=== PATIENT | female | born 1945 | race Caucasian/White ===

== ENCOUNTER 2018-03-31 07:21 | Day surgery (SDC) | payer MEDICARE, OTHER ==
[~2018-03-31 07:21] MED LIST: Famotidine IV* 10 MG/ML 2 ML (20 mg) IV ONE
[2018-03-31] MEDS ORDERED: Famotidine IV* 10 MG/ML 2 ML (20 mg) ONE (08:07)
[2018-03-31] MEDS ORDERED: Clindamycin 900 MG/D5W BAG(*) 900 MG/50 ML BAG IVPB ONE (08:07)
[2018-03-31] MEDS ORDERED: Dexamethasone IV* 4 MG/ML 1 ML (4 MG) ONE (08:34)
[2018-03-31] MEDS ORDERED: fentaNYL* 50 MCG/ML 2 ML VIAL (100 MCG VIAL) ONE ×2 (08:34→13:20)
[2018-03-31] MEDS ORDERED: Lidocaine 2% PF * 5 ML VIAL ONE (08:34)
[2018-03-31] MEDS ORDERED: Ondansetron INJ* 2 MG/ML VIAL ONE (08:34)
[2018-03-31] MEDS ORDERED: Propofol* 10 MG/ML 20 ML BTL ONE (08:34)
[2018-03-31] MEDS ORDERED: Midazolam* 1 MG/ML 5 ML VIAL (5 MG) ONE (08:34)
[2018-03-31] MEDS ORDERED: Cisatracurium* 2 MG/ML MDV 5 ML ONE (08:34)
[2018-03-31] MEDS ORDERED: KETAMINE HCL* 50 MG/ML 10 ML VIAL ONE (08:34)
[2018-03-31] MEDS: Buffered Lidocaine 0.9% SYRIN* 5 ML/SYR SYRINGE INTRADERM ONE ×2 (08:52→14:47)
[2018-03-31] MEDS ORDERED: Artificial Tear OPHTH.OINT* 3.5 GM ONE (09:28)
[2018-03-31] MEDS ORDERED: Lidocain 1% EPI 1:100,000 * 30 ML MDV ONE (09:58)
[2018-03-31] MEDS ORDERED: Thrombin 5,000 UNITS* 1 APPLIC KIT - topical use - TOPICAL ONE (09:58)
[2018-03-31] MEDS ORDERED: Bacitracin IV* 50,000 UNITS INJ ONE (09:59)
[2018-03-31] MEDS ORDERED: EPHEDrine (Pressors)* 50 MG/ML VIAL ONE (10:20)
[2018-03-31] MEDS ORDERED: Phenylephrine INJ* 10 MG/ML 1 ML VIAL (10 MG) ONE (10:56)
[2018-03-31] MEDS ORDERED: Ondansetron INJ* 2 MG/ML VIAL IV PRN ×2 (11:08→11:29)
[2018-03-31] MEDS ORDERED: Naloxone* 0.4 MG/ML 1 ML VIAL IV PRN (11:08)
[2018-03-31] MEDS ORDERED: fentaNYL* 50 MCG/ML 2 ML VIAL (100 MCG VIAL) IV PRN (11:08)
[2018-03-31] MEDS ORDERED: HYDROcodone/ACETAMIN 5-325 MG* 1 TAB PO PRN (11:29)
[2018-03-31] MEDS ORDERED: Acetaminophen TAB* 325 MG PO PRN (11:29)
[2018-03-31] MEDS ORDERED: Albuterol HFA INHALER* 8 gm MDI INH PRN (11:30)
[2018-03-31] MEDS ORDERED: HYDROcodone/ACETAMIN 5-325 MG* 1 TAB ONE (12:15)
[2018-03-31] MEDS ORDERED: Lisinopril TAB* 5 MG PO SCH (18:00)
[2018-03-31] MEDS ORDERED: Loteprednol 0.5% OPH.SUSP(NF) 5 ML BTL RIGHT EYE SCH (18:00)
[2018-03-31] MEDS ORDERED: Loteprednol 0.5% OPH.SUSP(NF) 5 ML BTL LEFT EYE SCH (18:00)
[2018-04-01 07:42] VITALS: BP 133/61
--- NOTE | 2018-04-01 08:08 | PN ---
Progress Note - Progress Note Date of Service: 04/01/18 SOAP: Subjective: [S/p lumbar discectomy L4-5 left, POD #1. LLE pain improved. Ambulating well. Incisional back pain managed with PO meds.] Objective: [ Vital Signs: Temp Pulse Resp BP Pulse Ox 98.6 F 87 16 133/61 99 04/01/18 07:22 04/01/18 07:22 04/01/18 07:22 04/01/18 07:22 04/01/18 07:22 General: Alert and sitting up on bedside. Neuro: Motor and sensory Incision: Intact with maggie. Dressing in place, no swelling. ] Assessment: [Satisfactory post-op] Plan: [1. Discharge home today. 2. Discharge instructions discussed]
--- NOTE | 2018-04-06 14:00 | OP ---
DATE OF OPERATION: 03/31/18 [facility] DATE OF : 45 SURGEON: Reza Ray MD HOME CARE NURSE: SHITAL Dumont ANESTHESIA: General. PRE-OP DIAGNOSIS: Herniated nucleus pulposus, L4-5, on the left. POST-OP DIAGNOSIS: Herniated nucleus pulposus, L4-5, on the left. OPERATIVE PROCEDURE: Partial hemilaminectomy L4-5 on the left with excision of herniated nucleus pulposus with microdissection. DESCRIPTION OF PROCEDURE: After satisfactory general anesthesia was obtained, the patient was placed on the operating table in the prone position with the chest supported on the Pop frame and the back slightly flexed. The lumbar region was then clipped, prepped and draped in a sterile manner for a lumbar laminectomy and a skin incision outlined from L4 to L5. This incision was infiltrated with 1% Xylocaine with epinephrine, after which it was turned down sharply to the level of the lumbar fascia. The fascia was divided along the spinous processes of the L4 and L5 and the paraspinal musculature stripped away from these posterior elements using the periosteal elevator and monopolar cautery. An intraoperative x-ray was obtained verifying proper interspace localization, after which the inferior aspect of the L4 lamina and medial aspect of the facet complex was thinned out with a Midas Keith drill and removed with a Kerrison. Preoperative imaging had suggested the superolateral migration of a disk fragment at this level. Additional superior and lateral exposure was obtained, which resulted in a medial facetectomy. Ligamentum flavum was removed with a Kerrison. At this point, the operating microscope was brought into the field and the remainder of the procedure done under microscopic visualization. Utilizing microdissection, epidural venous structures were coagulated and divided. Multiple fragments of disk material were found in the axillary area of the L4 nerve root exposure. These were removed with microdissection. These fragments had projected superiorly and medially and were basically over the L4 vertebral body and out into the foraminal region. After removing these fragments, the L4 and L5 nerve roots were noted to be free in their course. No attempts were made to enter the disk space itself. It was felt that a satisfactory decompression had been achieved. After assuring adequate hemostasis, the wound was thoroughly irrigated, after which a piece of Gelfoam was placed over the laminectomy defect. The fascia was then reapproximated with 0 Vicryl suture. The subcutaneous tissues were closed with 3-0 Vicryl suture and the skin closed with skin clips. The estimated blood loss was less than 50 cc and the final sponge, padding, and needle counts were correct. The patient was taken to the recovery room, extubated and in stable condition. [id number]/[facility] #: [id number] MTDD
== END 2018-04-01 09:30 | disposition home or self-care (01) ==
LOC: OR 07:21 → SSU 11:29 → OR 04-01 09:30
PROVIDERS: ATTEND Neurological Surgery
DX: M51.26 Other intervertebral disc displacement, lumbar region (principal); Z88.0 Allergy status to penicillin; I10 Essential (primary) hypertension; J45.909 Unspecified asthma, uncomplicated; K21.9 Gastro-esophageal reflux disease without esophagitis; E78.5 Hyperlipidemia, unspecified
CPT/HCPCS: 72100; A9270-GY; J1100; J2250; J2405; J2704; J3010

== ENCOUNTER → 2018-10-08 12:30 | Emergency (ER) | payer MEDICARE, OTHER ==
[~2018-10-08 12:30] MED LIST changes: -Famotidine IV* 10 MG/ML 2 ML (20 mg) IV ONE; +Iohexol 350* (CONTRAST) 500 ML MDV IV ONE; +Lactated Ringers 1000 ML Bag* 1,000 ML IV SCH
[2018-10-08 13:02] LABS: ABS Basophils 0.1 10^3/ul (0-0.2); ABS Eosinophils 0.1 10^3/ul (0-0.6); ABS Lymphocytes 2.4 10^3/ul (1.0-4.8); ABS Monocytes 0.7 10^3/ul (0-0.8); ABS Neutrophils 4.6 10^3/ul (1.5-7.7); Eosinophil % 1.1 %; Hematocrit 42 % (35-47); Hemoglobin 13.9 g/dL (12.0-16.0); Lymphocyte % 30.6 %; Mean Corpuscular HGB Conc 33 g/dL (31-36); Mean Corpuscular Hemoglobin 31 pg (27-31); Mean Corpuscular Volume 93 fL (80-97); Nucleated Red Blood Cells % 0.1; Platelet Count 226 10^3/uL (150-450); Red Blood Count 4.49 10^6 /uL (3.70-4.87); Red Cell Distribution Width 14 % (10-15); White Blood Count 7.9 10^3/uL (3.5-10.8)
[2018-10-08 13:10] LABS: Activated Partial Thrombo Time 30.2 seconds (26.0-38.0); INR 0.97 (0.82-1.09)
[2018-10-08 13:21] LABS: Albumin/Globulin Ratio 1.8 (1-3); BUN/Creatinine Ratio 20.7 (8-20); Calcium 9.2 mg/dL (8.6-10.3); EGFR African American 72.6 (>60); Globulin 2.2 g/dL (2-4); Potassium 4.5 mmol/L (3.5-5.0); Total Bilirubin 0.7 mg/dL (0.2-1.0); Total Protein 6.2 g/dL (6.4-8.9)
--- NOTE | 2018-10-08 13:24 | ED ---
HPI Chest Pain - HPI Summary HPI Summary: Pt is a 72 y/o F presenting to the ED with a chief complaint of chest pain first onset today. She had a laparoscopic oophorectomy, and had some tightness in her shoulders and neck yesterday, so she elevated her legs which helped but she still experienced some SOB. She feels slightly better but it is still there. She also thought her L foot was slightly edematous, but she denies any pain in her feet or calves bilaterally. 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 - History of Current Complaint Chief Complaint: EDChestPainROMI Time Seen by Provider: 10/08/18 12:42 Hx Obtained From: Patient Onset/Duration: Started Hours Ago, Still Present Timing: Constant, Lasting Hours Initial Severity: Mild Current Severity: Mild Pain Intensity: 0 Pain Scale Used: 0-10 Numeric Chest Pain Location: Diffuse Chest Pain Radiates: No Character: Tightness Aggravating Factor(s): Nothing Alleviating Factor(s): Nothing Associated Signs and Symptoms: Positive: Chest Pain, Shortness of Breath, Edema. Negative: Calf Pain/Swelling - Allergy/Home Medications Allergies/Adverse Reactions: Allergies Allergy/AdvReac Type Severity Reaction Status Date / Time Penicillins Allergy Severe Rash Verified 10/08/18 12:32 Sulfa (Sulfonamide Allergy Mild Rash Verified 10/08/18 12:32 Antibiotics) sulfamethoxazole Allergy Mild Rash Verified 10/08/18 12:32 [From Bactrim] trimethoprim [From Bactrim] Allergy Mild Rash Verified 10/08/18 12:32 PMH/Surg Hx/FS Hx/Imm Hx Previously Healthy: Yes Endocrine/Hematology History: Denies: Hx Bone Marrow Disease, Hx Diabetes, Hx Sickle Cell Disease, Hx Anemia Cardiovascular History: Reports: Hx Hypertension - CONTROLLED W/ MEDS, 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 Denies: Hx Pacemaker/ICD Respiratory History: Reports: Hx Asthma Denies: Other Respiratory Problems/Disorders - CAN CLIMB MORE THAN 2 FLIGHTS BUT GI History: Reports: Hx Gastroesophageal Reflux Disease, Hx Hiatal Hernia - SMALL- SINCE 2008, Hx Irritable Bowel - DX CELIAC DISEASE 2008 History: Denies: Hx Renal Disease Musculoskeletal History: Reports: Hx Osteoporosis Denies: Hx Rheumatoid Arthritis, Other Musculoskeletal History - PAIN, NUMBNESS, TINGLING DOWN LEFT LEG Sensory History: Reports: Hx Cataracts, Hx Contacts or Glasses - GLASSES- SELDOM WEARS, Hx Glaucoma Denies: Hx Hearing Aid Opthamlomology History: Reports: Hx Cataracts, Hx Contacts or Glasses - GLASSES - SELDOM WEARS, Hx Glaucoma Neurological History: Reports: Hx Headaches - occasional, Hx Migraine - ocular- occasional, Other Neuro Impairments/Disorders - lumbar disc displacement, occasional bouts of vertigo Psychiatric History: Denies: Hx Panic Disorder - Cancer History Hx Chemotherapy: No Hx Radiation Therapy: No - Surgical History Surgery Procedure, Year, and Place: TONSILLECTOMY MD. LEFT BREAST BIOPSY X 2 [facility] ([facility]). LEFT THYROIDECTOMY BENIGN 1995 [facility]. CATARACTS/ CORNEAL CELL TRANSPLANTS BILAT- RIGHT 08/07, LEFT 05/14 [place]. PELVIC MESH - URINARY INCONTINENCE 2012 [facility]. D&C 2016 [facility] Hx Anesthesia Reactions: No Infectious Disease History: No Infectious Disease History: Denies: Traveled Outside the [place] in Last 30 Days - Family History Known Family History: Positive: Hypertension - father, Diabetes - mother Family History: Mother and father with CA - Social History Alcohol Use: Occasionally Alcohol Amount: 4 DRINKS/MONTH Hx Substance Use: No Substance Use Type: Reports: None Hx Tobacco Use: No Smoking Status (MU): Never Smoked Tobacco Have You Smoked in the Last Year: No Review of Systems Positive: Chest Pain Positive: Shortness Of Breath Positive: Edema - L foot. Negative: Myalgia - calf/foot pain/edema All Other Systems Reviewed And Are Negative: Yes Physical Exam - Summary Physical Exam Summary: Constitutional: Well-developed, Well-nourished, Alert. (-) Distressed Skin: Warm, Dry HENT: Normocephalic; Atraumatic Eyes: Conjunctiva normal Neck: Musculoskeletal ROM normal neck. (-) JVD, (-) Stridor, (-) Tracheal deviation Cardio: Rhythm regular, rate normal, Heart sounds normal; Intact distal pulses; The pedal pulses are 2+ and symmetric. Radial pulses are 2+ and symmetric. Pulmonary/Chest wall: Effort normal. (-) Respiratory distress, (-) Wheezes, (-) Rales Abd: Mild diffuse abd pain buy not focally tender. Multiple laparoscopic surgical wounds that are well-healing with steristrips and dermabond over them. There is no discharge, bleeding, or distention. (-) Guarding, (-) Rebound Musculoskeletal: (-) Edema Neuro: Alert, Oriented x3 Psych: Mood and affect Normal Triage Information Reviewed: Yes Vital Signs On Initial Exam: Initial Vitals Temp Pulse Resp BP Pulse Ox 98.1 F 100 18 194/107 97 10/08/18 12:32 10/08/18 12:32 10/08/18 12:32 10/08/18 12:32 10/08/18 12:32 Vital Signs Reviewed: Yes Diagnostics - Vital Signs Vital Signs Temp Pulse Resp BP Pulse Ox 10/08/18 12:32 98.1 F 100 18 194/107 97 - Laboratory Lab Results: Lab Results 10/08/18 10/08/18 10/08/18 Range/Units 12:52 12:52 12:52 WBC 7.9 (3.5-10.8) 10^3/uL RBC 4.49 (3.70-4.87) 10^6 /uL Hgb 13.9 (12.0-16.0) g/dL Hct 42 (35-47) % MCV 93 (80-97) fL MCH 31 (27-31) pg MCHC 33 (31-36) g/dL RDW 14 (10-15) % Plt Count 226 (150-450) 10^3/uL MPV 8.0 (7.4-10.4) fL Neut % (Auto) 58.5 % Lymph % (Auto) 30.6 % Allen % (Auto) 8.4 % Eos % (Auto) 1.1 % Baso % (Auto) 1.4 % Absolute Neuts (auto) 4.6 (1.5-7.7) 10^3/ul Absolute Lymphs (auto) 2.4 (1.0-4.8) 10^3/ul Absolute Monos (auto) 0.7 (0-0.8) 10^3/ul Absolute Eos (auto) 0.1 (0-0.6) 10^3/ul Absolute Basos (auto) 0.1 (0-0.2) 10^3/ul Absolute Nucleated RBC 0.0 10^3/ul Nucleated RBC % 0.1 INR (Anticoag Therapy) 0.97 (0.82-1.09) APTT 30.2 (26.0-38.0) seconds Sodium 140 (135-145) mmol/L Potassium 4.5 (3.5-5.0) mmol/L Chloride 102 (101-111) mmol/L Carbon Dioxide 31 (22-32) mmol/L Anion Gap 7 (2-11) mmol/L BUN 19 (6-24) mg/dL Creatinine 0.92 (0.51-0.95) mg/dL Est GFR ( Amer) 72.6 (>60) Est GFR (Non-Af Amer) 60.0 (>60) BUN/Creatinine Ratio 20.7 H (8-20) Glucose 99 (70-100) mg/dL Lactic Acid (0.5-2.0) mmol/L Calcium 9.2 (8.6-10.3) mg/dL Magnesium 2.0 (1.9-2.7) mg/dL Total Bilirubin 0.70 (0.2-1.0) mg/dL AST 20 (13-39) U/L ALT 17 (7-52) U/L Alkaline Phosphatase 53 (34-104) U/L Troponin I 0.00 (<0.04) ng/mL Total Protein 6.2 L (6.4-8.9) g/dL Albumin 4.0 (3.2-5.2) g/dL Globulin 2.2 (2-4) g/dL Albumin/Globulin Ratio 1.8 (1-3) 10/08/18 Range/Units 12:52 WBC (3.5-10.8) 10^3/uL RBC (3.70-4.87) 10^6 /uL Hgb (12.0-16.0) g/dL Hct (35-47) % MCV (80-97) fL MCH (27-31) pg MCHC (31-36) g/dL RDW (10-15) % Plt Count (150-450) 10^3/uL MPV (7.4-10.4) fL Neut % (Auto) % Lymph % (Auto) % Allen % (Auto) % Eos % (Auto) % Baso % (Auto) % Absolute Neuts (auto) (1.5-7.7) 10^3/ul Absolute Lymphs (auto) (1.0-4.8) 10^3/ul Absolute Monos (auto) (0-0.8) 10^3/ul Absolute Eos (auto) (0-0.6) 10^3/ul Absolute Basos (auto) (0-0.2) 10^3/ul Absolute Nucleated RBC 10^3/ul Nucleated RBC % INR (Anticoag Therapy) (0.82-1.09) APTT (26.0-38.0) seconds Sodium (135-145) mmol/L Potassium (3.5-5.0) mmol/L Chloride (101-111) mmol/L Carbon Dioxide (22-32) mmol/L Anion Gap (2-11) mmol/L BUN (6-24) mg/dL Creatinine (0.51-0.95) mg/dL Est GFR ( Amer) (>60) Est GFR (Non-Af Amer) (>60) BUN/Creatinine Ratio (8-20) Glucose (70-100) mg/dL Lactic Acid 1.3 (0.5-2.0) mmol/L Calcium (8.6-10.3) mg/dL Magnesium (1.9-2.7) mg/dL Total Bilirubin (0.2-1.0) mg/dL AST (13-39) U/L ALT (7-52) U/L Alkaline Phosphatase (34-104) U/L Troponin I (<0.04) ng/mL Total Protein (6.4-8.9) g/dL Albumin (3.2-5.2) g/dL Globulin (2-4) g/dL Albumin/Globulin Ratio (1-3) Result Diagrams: 10/08/18 12:52 10/08/18 12:52 Lab Statement: Any lab studies that have been ordered have been reviewed, and results considered in the medical decision making process. - CT CTA Chest/Thorax CT Interpretation Completed By: Radiologist Summary of CT Findings: No pulmonary embolus is noted. No evidence of aortic dissection is noted. Large amount of free air is noted. This may be postoperative in nature. Clinical correlation is suggested. ED physician has reviewed this report. - EKG 1302 Cardiac Rate: NL - 96bpm EKG Rhythm: Sinus Rhythm ST Segment: Normal Ectopy: None Summary of EKG Findings: EKG at 1302 shows NSR at 96bpm with no STEMI. Chest Pain Course/Dx - Course Course Of Treatment: Pt is a 72 y/o F presenting to the ED with a chief complaint of chest pain first onset today. She had a laparoscopic oophorectomy, and had some tightness in her shoulders and neck yesterday, so she elevated her legs which helped but she still experienced some SOB. She feels slightly better but it is still there. She also thought her L foot was slightly edematous, but she denies any pain in her feet or calves bilaterally. EKG at 1302 shows NSR at 96bpm with no STEMI. CTA Chest/Thorax shows: No pulmonary embolus is noted. No evidence of aortic dissection is noted. Large amount of free air is noted. This may be postoperative in nature. Clinical correlation is suggested. Pt's lab results are all WNL. The pt's troponin results are negative, and she will be sent home with a dx of chest pain. She is stable and agreeable with this plan. - Diagnoses Provider Diagnoses: Surgical pneumoperitoneum Discharge - Sign-Out/Discharge Documenting (check all that apply): Patient Departure Patient Received Moderate/Deep Sedation with Procedure: No - Discharge Plan Condition: Good Disposition: HOME Patient Education Materials: Chest Pain (ED), Laparoscopic Oophorectomy (DC) Referrals: Raymond Washington MD [Primary Care Provider] - Additional Instructions: Please follow up with your primary care physician within the next 2-3 days. Return to the ED with any new or worsening symptoms. - Billing Disposition and Condition Condition: GOOD Disposition: Home - Attestation Statements Document Initiated by Jodyibe: Yes Documenting Scribe: Juliane Hutchinson Provider For Whom Janessa is Documenting (Include Credential): Meño Atkins MD. Scribe Attestation: Juliane Ramirez, danicaed for Meño Atkins MD. on 10/08/18 at 1719. Scribe Documentation Reviewed: Yes Provider Attestation: The documentation as recorded by the Juliane toribio accurately reflects the service I personally performed and the decisions made by me, Meño Atkins MD. Status of Scribe Document: Viewed
[2018-10-08 16:01] VITALS: BP 168/83
== END | disposition home or self-care (01) ==
LOC: ED 12:30
DX: T81.82XA Emphysema (subcutaneous) resulting from a procedure, initial encounter (principal); Z90.722 Acquired absence of ovaries, bilateral; R60.0 Localized edema; I10 Essential (primary) hypertension; Z88.0 Allergy status to penicillin; Z88.2 Allergy status to sulfonamides
CPT/HCPCS: 36415; 71275; 80053; 83605; 83735; 83880; 84484; 85025; 85610; 85730; 93005; 96360; 99283; Q9967

== ENCOUNTER 2019-06-16 08:19 | Emergency (ER) | payer MEDICARE, OTHER ==
--- OUTSIDE RECORDS SUMMARY | 2019-06-16 08:36 | XMS REPORT ---
:1945 Author Organization [facility] Address [address] [place] [address] Care Team Providers Name Role Phone Colten Casrto Unavailable Unavailable PROBLEMS Type Condition ICD9-CM Code [id number] Onset Condition SNOMED Code Code Dates Status Problem Other specified N94.89 Active 544107171 conditions associated with female genital organs and menstrual cycle Problem Unspecified ovarian N83.209 Active 73785648 cyst, unspecified side Problem PELVIC PAIN 625.9 Active 29362060 Problem Dysuria R30.0 Active 99774755 Problem Stress incontinence N39.3 Active 77916744 (female) (male) Problem Urinary tract N39.0 Active 30687582 infection, site not specified Problem Postmenopausal N95.0 Active 26327610 bleeding Problem Polyp of corpus N84.0 Active 42206047 uteri Problem 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 Problem 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 ALLERGIES No Information ENCOUNTERS Encounter Location Date Diagnosis [address] Jul, [facility] [address] [place] [id number] [facility] 103 May, OBN [place] [id number] [address] May, [facility] [address] [place] [id number] May, Urinary tract infection, [facility] [address] [place] [address], site not specified N39.0 [place] [id number] and Dysuria R30.0 [facility] [address] Jan, [address] [place], [place] [id number] [facility] [address] Jan, Other specified follicular [address] [place], disorders L73.8 and Scar [place] [id number] conditions and fibrosis of skin L90.5 [facility] 103 Dec, Urinary tract infection, OBGYN [facility], site not specified N39.0 [place] [id number] [facility] 103 Dec, Urinary tract infection, OBGYN [facility], site not specified N39.0 [place] [id number] [facility] 103 Dec, [place] [id number] [facility] [address] Dec, Dysuria R30.[address] [place], [place] [id number] [facility] 103 Sep, Other ovarian cyst, left [facility], side N83.292 and Other [place] [id number] ovarian cyst, right side N83.291 [facility] 103 Sep, [place], [place] [id number] [place] [address] Sep, Other specified conditions [place], [place] [id number] associated with female genital organs and menstrual cycle N94.89 ; Other ovarian cyst, right side N83.291 and Other ovarian cyst, left side N83.292 [facility] 103 Sep, [place] [id number] [facility] [address] August, Other ovarian cyst, left [address] [place], side N83.292 and Other [place] [address] ovarian cyst, right side N83.291 [facility] 103 August, [place] [id number] [facility] 103 Jul, OBG[place] [id number] [address] Jul, Other ovarian cyst, left [address] [place], side N83.292 and Other [place] [id number] ovarian cyst, right side N83.291 [facility] Jul, [facility] gy[facility] examination [place] [id number] (general) (routine) with abnormal findings Z01.411 ; Encounter for screening for malignant neoplasm of cervix Z12.4 ; Encounter for screening mammogram for malignant neoplasm of breast Z12.31 ; Encounter for screening for malignant neoplasm of colon Z12.11 ; Postmenopausal bleeding N95.0 ; Other ovarian cyst, left side N83.292 and Other ovarian cyst, right side N83.291 [facility] 103 Jul, Unspecified ovarian cyst, OBGYN [facility], unspecified side N83.209 [place] [id number] and Pelvic and perineal pain R10.2 [facility] 103 Dec, [facility], N95.0 and Other ovarian [place] [id number] cyst, left side N83.292 [facility] 103 Dec, Postmenopausal bleeding OBN [facility], N95.0 ; Other ovarian [place] [id number] cyst, left side N83.292 and Leiomyoma of uterus, unspecified D25.[address] August, Postmenopausal bleeding [address] [place], N95.0 and Polyp of corpus [place] [id number] uteri N84.0 [facility] [address] Jul, Other specified conditions [place] [id number] associated with female genital organs and menstrual cycle N94.89 and Polyp of corpus uteri N84.[address] Jul, Postmenopausal bleeding [address] [place], N95.0 [place] [id number] [facility] 103 Jun, Unspecified ovarian cyst, OBGYN [facility], left side N83.202 and [place] [id number] Other ovarian cyst, left side N83.292 [facility] Jun, OBG[facility] [id number] [facility] Jun, [facility] gynecological examination [place] [id number] (general) (routine) with abnormal findings Z01.411 ; Encounter for screening for malignant neoplasm of cervix Z12.4 ; Encounter for screening for malignant neoplasm of colon Z12.11 ; PELVIC PAIN 625.9 ; Unspecified ovarian cyst, unspecified side N83.209 ; Encounter for screening mammogram for malignant neoplasm of breast Z12.31 and Postmenopausal bleeding N95.0 [facility] 103 Jun, Unspecified ovarian cyst, OBGYN [facility], unspecified side N83.209 [place] [id number] and Leiomyoma of uterus, unspecified D25.9 [facility] 103 Feb, [place] [id number] [facility] [address] [place] [address] Feb, PELVIC PAIN 625.[address] [place], Unspecified ovarian cyst, [place] [id number] unspecified side N83.209 [facility] 103 Feb, OBG[place] [id number] [facility] Jan, [place] [id number] [facility] 103 Jan, PELVIC PAIN 625.[address] [facility], Unspecified ovarian cyst, [place] [id number] unspecified side N83.209 [facility] 103 Jan, Unspecified ovarian cyst, OBGYN [facility], unspecified side N83.209 ; [place] [id number] Other specified conditions associated with female genital organs and menstrual cycle N94.89 and Leiomyoma of uterus, unspecified D25.9 [facility] 103 Jan, OBG[place] [id number] [facility] [address] Jan, PELVIC PAIN 625.[address] [place] [address], Unspecified ovarian cyst, [place] [id number] unspecified side N83.209 [facility] 103 Dec, O[place] [id number] [facility] [address] Dec, Other specified [facility] [address] [place] [address], associated with female [place] [id number] genital organs and menstrual cycle N94.89 ; Unspecified ovarian cyst, unspecified side N83.209 ; PELVIC PAIN 625.9 and Postmenopausal bleeding N95.0 [facility] 103 Dec, Ovarian cyst NOS 620.[address] [facility], Leiomyoma of uterus, [place] [address] unspecified D25.9 [facility] 103 Nov, OBG[place] [id number] [facility] 103 Nov, [place] [id number] [facility] 103 Nov, Other specified conditions OBGYN [facility], associated with female [place] [id number] genital organs and menstrual cycle N94.89 ; Unspecified ovarian cyst, unspecified side N83.209 and PELVIC PAIN 625.9 [facility] 103 Nov, Other specified conditions OBGYN [facility], associated with female [place] [id number] genital organs and menstrual cycle N94.89 ; Ovarian cyst NOS 620.2 and PELVIC PAIN 625.9 [facility] 103 Nov, [place] [id number] [facility] [address] [facility] Nov, Other specified conditions [facility] [address] [place] [address], associated with female [place] [id number] genital organs and menstrual cycle N94.89 [facility] 103 Sep, [place] [id number] [facility] 103 Sep, Unspecified ovarian cyst, OBGYN [facility], unspecified side N83.209 [place] [id number] and PELVIC PAIN 625.9 [facility] 103 Sep, PELVIC PAIN 625.[address] [facility], Ovarian cyst NOS 620.2 [place] [id number] [facility] 103 Sep, Ovarian cyst NOS 620.2 [place] [id number] [facility] [address] [place] [address] [facility] August, Unspecified ovarian cyst, OBGYN [address] [place] [address], unspecified side N83.209 [place] [id number] and Other specified conditions associated with female genital organs and menstrual cycle N94.89 [facility] [address] August, OBGYN [address] [place] [id number] [facility] [address] [place] [address] [facility] Jul, Cystocele NOS w/o mention OBG[address] [place] [address], of uterine prolapse 618.01 [place] [id number] [facility] [facility] [facility] Jul, Cystocele NOS w/o mention [address]BG[address] [place] [address], of uterine prolapse 618.01 [place] [id number] [facility] 103 Jun, FEM STRESS INCONTINENCE OBGYN 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 and Cystocele NOS w/o mention of uterine prolapse 618.[address] [facility] [address] Jun, [place] [id number] [facility] [address] [place] [address] [facility] Jun, FEM STRESS INCONTINENCE [address] [place] [address], 625.6 ; Urethral [place] [id number] 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.81 and Cystocele NOS w/o mention of uterine prolapse 618.01 [facility] 103 07 May, 2012 OBG[place] [id number] [facility] 103 May, O[place] [id number] [facility] [address] [place] [address] May, FEM STRESS INCONTINENCE [address] [place], 625.6 ; 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 Health Member Patient Patient Patient Patient Patient Subscriber Subscriber Subscriber Group Insurance Plan Plan Plan Plan ID Relationship Address Phone Name Date of ID Name Date of No Type Insurance Insurance Insurance Coverage to Subscriber Address Phone Name Dates Aetna [address] [place] [id number] [facility] [address] [place] [address] [address] AETNA [phone] [employer] self [place] [id number] [place] [address] Medicare [phone] Medicare self [place] [id number] [facility] [id number] MEDICAL (GENERAL) HISTORY Type Description Date Medical History Asthma Medical History HTN Medical History IBS Medical History Osteoporosis Medical History GERD/Reflux Medical History Celiac Medical History corneal cell transplant- on antirejection med, had fuchs dysplasia Medical History high cholesterol Medical History tendonitis in upper arm Medical History BRCA neg Medical History positional vertigo Surgical History Left thyroidectomy 1992 Surgical History Corneal cell transplant Right eye 2011 Surgical History MiniArc TOT, ant colporrhaphy w/ SIS biologic 07-07-12 mesh, cystoscopy. Surgical History Colonoscopy 2008 Surgical History corneal cell transplant for fughs dysplasia 2011 Surgical History breast bx - fibroadenoma - negative Surgical History hysteroscopy/D&C 08/06/17 Surgical History Herniated Disc 03/31/18 Surgical History laparoscopic BSO 10/06/18 Hospitalization History Child Hospitalization History see above
--- OUTSIDE RECORDS SUMMARY | 2019-06-16 08:36 | XMS REPORT ---
:1945 Author Organization 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 867673163 follicular disorders Problem Unspecified ovarian N83.209 Active 19972845 cyst, unspecified side Problem PELVIC PAIN 625.9 Active 86017053 Problem Postmenopausal N95.0 Active 07572665 bleeding Problem Polyp of corpus N84.0 Active 28109035 uteri ALLERGIES No Information ENCOUNTERS Encounter Location Date Diagnosis [address] Jul, [facility] [address] [place] [id number] Jan, [facility] [address] [place], [place] [id number] [address] Jan, Other specified follicular [facility] [address] [place] [address], disorders L73.8 [place] [id number] conditions and fibrosis of skin L90.5 [facility] Dec, Urinary tract infection, OBGYN [facility], site not specified N39.0 [place] [id number] [facility] Dec, Urinary tract infection, OBGYN [facility], site not specified N39.0 [place] [id number] [facility] 103 Dec, OBGYN [place] [id number] [facility] [address] Dec, Dysuria R30.[address] [facility] [address] [place], [place] [id number] [facility] 103 Sep, Other [facility] N83.292 and Other [place] [id number] ovarian cyst, right side N83.291 [facility] 103 Sep, [place] [id number] [place] [address] Sep, Other specified conditions [place], [place] [id number] associated with female genital organs and menstrual cycle N94.89 ; Other ovarian cyst, right side N83.291 and Other ovarian cyst, left side N83.292 [facility] Sep, OBGYN [place], [place] [id number] [place] [facility] [address] August, Other ovarian cyst, left OBGY Road [address] [place], side N83.292 and Other [place] [id number] ovarian cyst, right side N83.291 [facility] 103 August, OBGYN [place] [id number] [facility] 103 Jul, OBGYN [place] [id number] [facility] [address] Jul, Other ovarian cyst, left OBGYN Road [address] [place], side N83.292 and Other [place] [id number] ovarian cyst, right side N83.291 [facility] 103 Jul, Encounter for [facility], gynecological examination [place] [id number] (general) (routine) with abnormal findings Z01.411 ; Encounter for screening for malignant neoplasm of cervix Z12.4 ; Encounter for screening mammogram for malignant neoplasm of breast Z12.31 ; Encounter for screening for malignant neoplasm of colon Z12.11 ; Postmenopausal bleeding N95.0 ; Other ovarian cyst, left side N83.292 and Other ovarian cyst, right side N83.291 [facility] 103 Jul, Unspecified ovarian cyst, OBGYN [facility], unspecified side N83.209 [place] [id number] and Pelvic and perineal pain R10.2 [facility] 103 Dec, [facility], N95.0 and Other ovarian [place] [address] cyst, left side N83.292 [facility] 103 Dec, Postmenopausal bleeding OBN [facility], N95.0 ; Other ovarian [place] [id number] cyst, left side N83.292 and Leiomyoma of uterus, unspecified D25.[address] August, [facility] [address] [place], N95.0 and Polyp of corpus [place] [id number] uteri N84.0 [place] [address] Jul, Other specified conditions [place] [id number] associated with female genital organs and menstrual cycle N94.89 and Polyp of corpus uteri N84.[address] Jul, Postmenopausal bleeding [facility] [address] [place], N95.0 [place] [id number] [facility] 103 Jun, Unspecified ovarian cyst, OBGYN [facility], left side N83.202 and [place] [id number] Other ovarian cyst, left side N83.292 [facility] 103 Jun, [facility] [place] [id number] [facility] 103 Jun, Encounter for [facility], gynecological examination [place] [id number] (general) (routine) with abnormal findings Z01.411 ; Encounter for screening for malignant neoplasm of cervix Z12.4 ; Encounter for screening for malignant neoplasm of colon Z12.11 ; PELVIC PAIN 625.9 ; Unspecified ovarian cyst, unspecified side N83.209 ; Encounter for screening mammogram for malignant neoplasm of breast Z12.31 and Postmenopausal bleeding N95.0 [facility] 103 Jun, Unspecified ovarian cyst, OBGYN [facility], unspecified side N83.209 [place] [id number] and Leiomyoma of uterus, unspecified D25.9 [facility] 103 Feb, OBGYN [place] [id number] [facility] [address] [place], [place] [address] Feb, PELVIC PAIN 625.9 and [facility] [address] [place], Unspecified ovarian cyst, [place] [id number] unspecified side N83.209 [facility] 103 Feb, OBGYN [place], [place] [id number] [facility] 103 Jan, OBGYN [place], [place] [id number] [facility] 103 Jan, PELVIC PAIN 625.9 and OBGYN [facility], Unspecified ovarian cyst, [place] [id number] unspecified side N83.209 [facility] 103 Jan, Unspecified ovarian cyst, OBGYN [facility], unspecified side N83.209 ; [place] [id number] Other specified conditions associated with female genital organs and menstrual cycle N94.89 and Leiomyoma of uterus, unspecified D25.9 [facility] 103 Jan, OBGYN [place], [place] [id number] [facility] [address] [place], [place] [address] Jan, PELVIC PAIN 625.9 and [facility] [address] [place], Unspecified ovarian cyst, [place] [id number] unspecified side N83.209 [facility] 103 Dec, OBGYN [place] [id number] [facility] [address] Dec, Other specified conditions [facility] [address] [place], associated with female [place] [id number] genital organs and menstrual cycle N94.89 ; Unspecified ovarian cyst, unspecified side N83.209 ; PELVIC PAIN 625.9 and Postmenopausal bleeding N95.0 [facility] 103 Dec, Ovarian cyst NOS 620.2 and OBGYN [facility], Leiomyoma of uterus, [place] [id number] unspecified D25.9 [facility] 103 Nov, OBGYN [facility], [place] [id number] [facility] 103 Nov, OBGYN [place] [id number] [facility] 103 Nov, Other specified conditions OBGYN [facility], associated with female [place] [id number] genital organs and menstrual cycle N94.89 ; Unspecified ovarian cyst, unspecified side N83.209 and PELVIC PAIN 625.9 [facility] 103 Nov, Other specified conditions OBGYN [facility], associated with female [place] [id number] genital organs and menstrual cycle N94.89 ; Ovarian cyst NOS 620.2 and PELVIC PAIN 625.9 [facility] 103 Nov, OBGYN [place], [place] [id number] [place] [facility] [address] [facility] Nov, Other specified conditions [facility] [address] [place], associated with female [place] [id number] genital organs and menstrual cycle N94.89 [facility] 103 Sep, OBGYN [facility], [place] [id number] [facility] 103 Sep, Unspecified ovarian cyst, OBGYN [facility], unspecified side N83.209 [place] [id number] and PELVIC PAIN 625.9 [facility] 103 Sep, PELVIC PAIN 625.9 and OBGYN [facility], Ovarian cyst NOS 620.2 [place] [id number] [facility] 103 Sep, Ovarian cyst NOS 620.2 O[place] [id number] [address] August, Unspecified ovarian cyst, OBGYN Road [address] [place] [address], unspecified side N83.209 [place] [id number] and Other specified conditions associated with female genital organs and menstrual cycle N94.[address] August, OBGYN [address] [place] [address] [id number] [place] [facility] Jul, Cystocele NOS w/o mention OBGYN Road [address] [place] [address], of uterine prolapse 618.01 [place] [id number] [address] Jul, Cystocele NOS w/o mention OBGY Road [address] [place] [address], of uterine prolapse 618.01 [place] [id number] [facility] 103 Jun, FEM STRESS INCONTINENCE OBGYN [facility], 625.6 ; Urethral [place] [id number] 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 103 May, [place] [id number] [address] May, FEM STRESS INCONTINENCE OBGYN Road [address] [place] [address], 625.6 ; Urethral [place] [id number] 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.81 and Cystocele NOS w/o mention of uterine prolapse 618.01 [facility] 103 03 May, 2012 OBGYN [place], [place] [id number] [facility] 103 Apr, FEM STRESS INCONTINENCE OBGYN [facility], 625.6 [place] [id number] [place] [facility] [address] [facility] Apr, Urinary incontinence, OBGYN Road [address] [place], unspecified 788.30 ; [place] [id number] 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 and Cystocele NOS w/o mention of uterine prolapse 618.01 IMMUNIZATIONS No Known Immunizations SOCIAL HISTORY Never Assessed REASON FOR REFERRAL FUNCTIONAL STATUS PLAN OF CARE VITAL SIGNS MEDICATIONS Unknown Medications PROCEDURES No Known procedures RESULTS No Results REASON FOR VISIT Pelvic lump Insurance Providers [facility] Patient Patient Patient Patient Patient Subscriber Subscriber Subscriber Group Insurance Plan Plan Plan Plan ID Relationship Address Phone Name Date of ID Name Date of No Type Insurance Insurance Insurance Coverage to Subscriber Address Phone Name Dates [place] [address] [place] [id number] [facility] [place] [address] Medicare [phone] Medicare self [place] [id number] [facility] [address] MEDICAL (GENERAL) HISTORY Type Description Date Medical [...]
--- OUTSIDE RECORDS SUMMARY | 2019-06-16 08:36 | XMS REPORT ---
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 Problem Unspecified ovarian N83.209 Active 40974869 cyst, unspecified side Problem PELVIC PAIN 625.9 Active 47872333 Problem Postmenopausal N95.0 Active 79609891 bleeding Problem Polyp of corpus N84.0 Active 69057650 uteri ALLERGIES Substance Reaction Event Type Date Status Sulfa rash Drug Allergy Jan, Active Penicillin rash Drug Allergy Jan, Active ENCOUNTERS Encounter Location Date Diagnosis [address] Jul, [facility] [address] [place], [place] [id number] [address] Jan, [facility] [address] [place] [id number] Jan, Other specified follicular [facility] [address] [place] [address], disorders L73.8 [place] [id number] conditions and fibrosis of skin L90.5 [facility] 103 26 Dec, 2018 Urinary tract infection, OBGYN [facility], site not specified N39.0 [place] [id number] [facility] 103 Dec, Urinary tract infection, OBGYN [facility], site not specified N39.0 [place] [id number] [facility] 103 Dec, OBGYN [place] [id number] [facility] [address] [facility] Dec, Dysuria R30.0 [facility] [address] [place], [place] [id number] [facility] 103 Sep, [facility] N83.292 and Other [place] [id number] ovarian cyst, right side N83.291 [facility] 103 Sep, [place] [id number] [place] [address] Sep, Other specified conditions [place], [place] [id number] associated with female genital organs and menstrual cycle N94.89 ; Other ovarian cyst, right side N83.291 and Other ovarian cyst, left side N83.292 [facility] 103 Sep, OBGYN [place] [id number] [facility] [address] August, Other ovarian cyst, left [facility]BG[address] [place], side N83.292 and Other [place] [id number] ovarian cyst, right side N83.291 [facility] 103 August, OBGYN [place] [id number] [facility] 103 Jul, OBGYN [place] [id number] [facility] [address] [facility] Jul, Other ovarian cyst, left [facility] [place], side N83.292 and Other [place] [id number] ovarian cyst, right side N83.291 [facility] 103 Jul, Encounter for [facility], gynecological examination [place] [id number] (general) (routine) with abnormal findings Z01.411 ; Encounter for screening for malignant neoplasm of cervix Z12.4 ; Encounter for screening mammogram for malignant neoplasm of breast Z12.31 ; Encounter for screening for malignant neoplasm of colon Z12.11 ; Postmenopausal bleeding N95.0 ; Other ovarian cyst, left side N83.292 and Other ovarian cyst, right side N83.291 [facility] 103 15 Jul, 2018 Unspecified ovarian cyst, OBGYN [facility], unspecified side N83.209 [place] [id number] and Pelvic and perineal pain R10.2 [facility] Dec, [facility] N95.0 and Other ovarian [place] [id number] cyst, left side N83.292 [facility] 103 Dec, Postmenopausal bleeding OBGYN [facility], N95.0 ; Other ovarian [place] [id number] cyst, left side N83.292 and Leiomyoma of uterus, unspecified D25.[address] August, [facility]menopausal [facility] [address] [place], N95.0 and Polyp of corpus [place] [id number] uteri N84.0 [facility] [address] Jul, Other specified conditions [place], [place] [id number] associated with female genital organs and menstrual cycle N94.89 and Polyp of corpus uteri N84.[address] Jul, Postmenopausal bleeding [facility] [address] [place], N95.0 [place] [id number] [facility] Jun, Unspecified ovarian cyst, OBGYN [facility], left side N83.202 and [place] [id number] Other ovarian cyst, left side N83.292 [facility] Jun, OBGYN [facility] [id number] [facility] Jun, Encounter for [facility], gynecological examination [place] [id number] (general) (routine) with abnormal findings Z01.411 ; Encounter for screening for malignant neoplasm of cervix Z12.4 ; Encounter for screening for malignant neoplasm of colon Z12.11 ; PELVIC PAIN 625.9 ; Unspecified ovarian cyst, unspecified side N83.209 ; Encounter for screening mammogram for malignant neoplasm of breast Z12.31 and Postmenopausal bleeding N95.0 [facility] 103 Jun, Unspecified ovarian cyst, OBGYN [facility], unspecified side N83.209 [place] [id number] and Leiomyoma of uterus, unspecified D25.9 [facility] 103 Feb, [place] [id number] [facility] [address] [place] [address] Feb, PELVIC PAIN 625.[address] [place], Unspecified ovarian cyst, [place] [id number] unspecified side N83.209 [facility] 103 Feb, OBG[place] [id number] [facility] 103 Jan, OBG[place] [id number] [facility] 103 Jan, PELVIC PAIN 625.9 and OBGYN [facility], Unspecified ovarian cyst, [place] [id number] unspecified side N83.209 [facility] 103 Jan, Unspecified ovarian cyst, OBGYN [facility], unspecified side N83.209 ; [place] [id number] Other specified conditions associated with female genital organs and menstrual cycle N94.89 and Leiomyoma of uterus, unspecified D25.9 [facility] 103 Jan, [place] [id number] [facility] [address] [place] [address] Jan, PELVIC PAIN 625.[address] [place], Unspecified ovarian cyst, [place] [id number] unspecified side N83.209 [facility] 103 Dec, OBGYN [place] [id number] [facility] [address] [facility] Dec, Other specified conditions [facility] [address] [place] [address], associated with female [place] [id number] genital organs and menstrual cycle N94.89 ; Unspecified ovarian cyst, unspecified side N83.209 ; PELVIC PAIN 625.9 and Postmenopausal bleeding N95.0 [facility] 103 Dec, Ovarian cyst NOS 620.2 and OBGYN [facility], Leiomyoma of uterus, [place] [id number] unspecified D25.9 [facility] 103 Nov, OBGYN [place] [id number] [facility] 103 Nov, OBGYN [place] [id number] [facility] 103 Nov, Other specified conditions OBGYN [facility], associated with female [place] [id number] genital organs and menstrual cycle N94.89 ; Unspecified ovarian cyst, unspecified side N83.209 and PELVIC PAIN 625.9 [facility] 103 Nov, Other specified conditions OBGYN [facility], associated with female [place] [address] genital organs and menstrual cycle N94.89 ; Ovarian cyst NOS 620.2 and PELVIC PAIN 625.9 [facility] 103 Nov, OBGYN [place] [id number] [facility] [address] Nov, Other specified conditions [facility] [address] [place] [address], associated with female [place] [id number] genital organs and menstrual cycle N94.89 [facility] 103 Sep, O[place], [place] [id number] [facility] 103 Sep, Unspecified ovarian cyst, OBGYN [facility], unspecified side N83.209 [place] [id number] and PELVIC PAIN 625.9 [facility] 103 Sep, PELVIC PAIN 625.9 and OBGYN [facility], Ovarian cyst NOS 620.2 [place] [id number] [facility] 103 Sep, Ovarian cyst NOS 620.2 OBGYN [place] [id number] [facility] [address] [place] [address] August, Unspecified ovarian cyst, OBGYN Road [address] [place] [address], unspecified side N83.209 [place] [id number] and Other specified conditions associated with female genital organs and menstrual cycle N94.89 [facility] [address] [place] [address] August, OBGYN Road [address] [place] [id number] [facility] [address] [place] [address] Jul, Cystocele NOS w/o mention OBGYN [address] [place] [address], of uterine prolapse 618.01 [place] [id number] [facility] Jul, Cystocele NOS w/o mention OBGYN [address] [place] [address], of uterine prolapse 618.01 [place] [id number] [facility] 103 Jun, FEM STRESS INCONTINENCE OBGYN [facility], 625.6 ; 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 and Cystocele NOS w/o mention of uterine prolapse 618.01 [place] [address] Jun, [place], [place] [id number] [address] Jun, FEM STRESS INCONTINENCE OBGYN Road [address] [place] [address], 625.6 ; 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 and Cystocele NOS w/o mention of uterine prolapse 618.01 [facility] 103 May, OBGYN [place], [place] [id number] [facility] 103 May, OBGYN [place] [id number] [facility] May, FEM STRESS INCONTINENCE OBGYN [address] [place] [address], 625.6 ; 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 and Cystocele NOS w/o mention of uterine prolapse 618.01 [facility] 103 03 May, 2012 OBGYN [place], [place] [id number] [facility] 103 Apr, FEM STRESS INCONTINENCE OBGYN [facility], 625.6 [place] [id number] [address] Apr, Urinary incontinence, [facility] [address] [place], unspecified 788.30 ; [place] [id number] 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 and Cystocele NOS w/o mention of uterine prolapse 618.01 IMMUNIZATIONS No Known Immunizations SOCIAL HISTORY Never Assessed REASON FOR REFERRAL FUNCTIONAL STATUS PLAN OF CARE Activity Details Follow Up PRN till annual Reason: VITAL SIGNS Weight 134 lbs 2019-02-04 Blood pressure systolic 140 mm Hg 2019-02-04 Blood pressure diastolic 80 mm Hg 2019-02-04 MEDICATIONS Medication Instructions Dosage Frequency Start End Duration Status Date Date Albuterol inhaler As directed prn As directed Active lisinopril 2.5 mg orally once a 1 tab(s) 24h Active day Lotemax 0.5% in each 1 gtt 6h Active affected eye 4 times a day nitrofurantoin orally 2 times 1 cap(s) 12h 12 Dec, 7 days Active macrocrystals-mono a day 2019 hydrate 100 mg Keflex 500 mg orally every 12 1 cap(s) 12h 10 Jan, 7 days Active hours 2019 Calcium 600+D 600 orally once 1 tab(s) 24h Active mg-200 units daily PROCEDURES Procedure Date Ordered Result Body Site DOC MEDS VERIFIED W/PT OR RE Feb 04, 2019 PRES/ABSN URINE INCON ASSESS Feb 04, 2019 RESULTS No Results REASON FOR VISIT Pt feels lump in pelvic area near the upper left groin area with tenderness X for a couple months Insurance Providers [facility] Member Patient Patient Patient Patient Patient Subscriber Subscriber Subscriber Group Insurance Plan Plan Plan Plan ID Relationship Address Phone Name Date of ID Name Date of No Type Insurance Insurance Insurance Coverage to Subscriber Address Phone Name Dates [place] [address] [address] [place] [id number] [place] [phone] Medicare [phone] Medicare self Yaritza [id number] [facility] [address] MEDICAL (GENERAL) HISTORY Type Description Date Medical [...]
--- OUTSIDE RECORDS SUMMARY | 2019-06-16 08:36 | XMS REPORT ---
:1945 Author Organization [facility] Address [address] [place] [address] Care Team Providers Name Role Phone Colten Castro Unavailable Unavailable PROBLEMS Type Condition ICD9-CM Code [id number] Onset Condition SNOMED Code Code Dates Status Problem Other specified N94.89 Active 736548628 conditions associated with female genital organs and menstrual cycle Problem Unspecified ovarian N83.209 Active 09161849 cyst, unspecified side Problem PELVIC PAIN 625.9 Active 49325910 Problem Dysuria R30.0 Active 14888813 Problem Stress incontinence N39.3 Active 04638343 (female) (male) Problem Urinary tract N39.0 Active 02018563 infection, site not specified Problem Postmenopausal N95.0 Active 03883372 bleeding Problem Polyp of corpus N84.0 Active 51674846 uteri Problem 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 791198140 fibrosis of skin Problem 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 245868430 follicular disorders ALLERGIES Substance Reaction Event Type Date Status Sulfa rash Drug Allergy May, Active Penicillin rash Drug Allergy May, Active ENCOUNTERS Encounter Location Date Diagnosis [address] Jul, [facility] [address] [place], [place] [id number] [address] May, Urinary tract infection, [facility] [address] [place] [address], site not specified N39.0 [place] [id number] and Dysuria R30.[address] Jan, [facility] [address] [place] [id number] [facility] [address] Jan, Other specified follicular [address] [place], disorders L73.8 [place] Scar [place] [id number] conditions and fibrosis of skin L90.5 [facility] Dec, Urinary tract infection, O[facility], site not specified N39.0 [place] [id number] [facility] Dec, Urinary tract infection, OBGYN [facility], site not specified N39.0 [place] [id number] [facility] Dec, [place] [id number] [place] [facility] [address] [place] [address] Dec, Dysuria R[address] [place] [id number] [facility] Sep, Other [facility] cyst, [facility] side N83.292 and Other [place] [id number] ovarian cyst, right side N83.291 [facility] Sep, [place] [id number] [place] [address] Sep, Other specified conditions [place], [place] [id number] associated with female genital organs and menstrual cycle N94.89 ; Other ovarian cyst, right side N83.291 and Other ovarian cyst, left side N83.292 [facility] Sep, OBG[place] [id number] [place] [facility] [address] August, Other ovarian cyst, left OBGYN [address] [place], side N83.292 and Other [place] [id number] ovarian cyst, right side N83.291 [facility] August, [place] [id number] [facility] Jul, [place] [id number] [place] [facility] Jul, Other ovarian cyst, [facility] [address] [place], side N83.292 and Other [place] [id number] ovarian cyst, right side N83.291 [facility] Jul, Encounter for [facility], gynecological examination [place] [id number] (general) (routine) with abnormal findings Z01.411 ; Encounter for screening for malignant neoplasm of cervix Z12.4 ; Encounter for screening mammogram for malignant neoplasm of breast Z12.31 ; Encounter for screening for malignant neoplasm of colon Z12.11 ; Postmenopausal bleeding N95.0 ; Other ovarian cyst, left side N83.292 and Other ovarian cyst, right side N83.291 [facility] Jul, Unspecified ovarian cyst, OBGYN [facility], unspecified side N83.209 [place] [id number] and Pelvic and perineal pain R10.2 [facility] 103 Dec, [facility], N95.0 and Other ovarian [place] [id number] cyst, left side N83.292 [facility] 103 Dec, Postmenopausal bleeding OBN [facility], N95.0 ; Other ovarian [place] [id number] cyst, left side N83.292 and Leiomyoma of uterus, unspecified D25.[address] August, [facility] [address] [place], N95.0 and Polyp of corpus [place] [id number] uteri N84.0 [place] [address] Jul, Other specified conditions [place] [id number] associated with female genital organs and menstrual cycle N94.89 and Polyp of corpus uteri N84.[address] Jul, [facility] [address] [place], N95.0 [place] [id number] [facility] 103 Jun, Unspecified ovarian cyst, OBGYN [facility], left side N83.202 and [place] [id number] Other ovarian cyst, left side N83.292 [facility]Note 2[facility] Jun, [place] [id number] [facility] Jun, Encounter for [facility], gynecological examination [place] [id number] (general) (routine) with abnormal findings Z01.411 ; Encounter for screening for malignant neoplasm of cervix Z12.4 ; Encounter for screening for malignant neoplasm of colon Z12.11 ; PELVIC PAIN 625.9 ; Unspecified ovarian cyst, unspecified side N83.209 ; Encounter for screening mammogram for malignant neoplasm of breast Z12.31 and Postmenopausal bleeding N95.0 [facility] Jun, Unspecified ovarian cyst, OBGYN [facility], unspecified side N83.209 [place] [id number] and Leiomyoma of uterus, unspecified D25.9 [facility] Feb, [place] [id number] [facility] [address] [place] [address] Feb, PELVIC PAIN 625.[address] [place], Unspecified ovarian cyst, [place] [id number] unspecified side N83.209 [facility]Note 2[facility] 103 Feb, [place] [id number] [facility] Jan, [place] [id number] [facility] Jan, PELVIC PAIN 625.9 and OBGYN [facility], Unspecified ovarian cyst, [place] [id number] unspecified side N83.209 [place] [facility] 103 Jan, Unspecified ovarian cyst, OBGYN [facility], unspecified side N83.209 ; [place] [id number] Other specified conditions associated with female genital organs and menstrual cycle N94.89 and Leiomyoma of uterus, unspecified D25.9 [place] [facility] Jan, [place] [id number] [place] [facility] [address] Jan, PELVIC PAIN 625.[address] [place] [address], Unspecified ovarian cyst, [place] [id number] unspecified side N83.209 [place] [facility] 103 Dec, [place] [id number] [place] [facility] [address] Dec, Other specified conditions OBG[address] [place] [address], associated with female [place] [id number] genital organs and menstrual cycle N94.89 ; Unspecified ovarian cyst, unspecified side N83.209 ; PELVIC PAIN 625.9 and Postmenopausal bleeding N95.0 [facility] 103 Dec, Ovarian cyst NOS 620.2 and OBGYN [facility], Leiomyoma of uterus, [place] [id number] unspecified D25.9 [place] [facility] Nov, [place] [id number] [facility] [facility] 103 Nov, [place] [id number] [place] [facility] 103 Nov, Other specified conditions OBN [facility], associated with female [place] [id number] genital organs and menstrual cycle N94.89 ; Unspecified ovarian cyst, unspecified side N83.209 and PELVIC PAIN 625.9 [place] [facility] 103 Nov, Other specified conditions OBN [facility], associated with female [place] [id number] genital organs and menstrual cycle N94.89 ; Ovarian cyst NOS 620.2 and PELVIC PAIN 625.9 [place] [facility] 103 Nov, [place], [place] [id number] [place] [facility] [address] [facility] Nov, Other specified conditions [facility] [address] [place] [address], associated with female [place] [id number] genital organs and menstrual cycle N94.89 [facility] 103 Sep, [place] [id number] [facility]Note 2[facility] Sep, Unspecified ovarian cyst, OBGYN [facility], unspecified side N83.209 [place] [id number] and PELVIC PAIN 625.9 [facility] 103 Sep, PELVIC PAIN 625.9 and OBGYN [facility], Ovarian cyst NOS 620.2 [place] [id number] [facility] 103 Sep, Ovarian cyst NOS 620.2 [place] [id number] [place] [facility] [address] [place] [address] August, Unspecified ovarian cyst, OBGYN Road [address] [place] [address], unspecified side N83.209 [place] [id number] and Other specified conditions associated with female genital organs and menstrual cycle N94.89 [place] [facility] [address] [place] [address] [facility] August, OBGYN [address] [place] [id number] [place] [facility] [address] [place] [address] Jul, Cystocele NOS w/o mention OBGY [address] [place] [address], of uterine prolapse 618.01 [place] [id number] [facility] Jul, Cystocele NOS w/o mention [facility] [address] [place] [address], of uterine prolapse 618.01 [place] [id number] [facility] 103 Jun, FEM STRESS INCONTINENCE OBGYN [facility], 625.6 ; Urethral [place] [id number] 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.81 and Cystocele NOS w/o mention of uterine prolapse 618.01 [facility] [address] Jun, [place] [id number] [address] Jun, FEM STRESS INCONTINENCE OBGYN [address] [place] [address], 625.6 ; Urethral [place] [id number] 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.81 and Cystocele NOS w/o mention of uterine prolapse 618.01 [facility] 103 May, [place] [id number] [facility] 103 07 May, 2012 [place] [id number] [facility] May, FEM STRESS INCONTINENCE [address] [place], 625.6 ; Urethral [place] [id number] 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.81 and Cystocele NOS w/o mention of uterine prolapse 618.01 [facility] 103 May, [place] [id number] [facility] 103 Apr, F[facility] STRESS INCONTINENCE [facility], 625.[address] [place] [id number] [address] Apr, Urinary incontinence, OBGYN [address] [place], unspecified 788.30 ; [place] [id number] 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 and Cystocele NOS w/o mention of uterine prolapse 618.01 IMMUNIZATIONS No Known Immunizations SOCIAL HISTORY Never Assessed REASON FOR REFERRAL FUNCTIONAL STATUS PLAN OF CARE Activity Details Follow Up scheduled Reason: Pending Test URINE CULTURE {ORGANISM ID} Pending Test URINALYSIS WITH MICROSCOPIC VITAL SIGNS Height 67 in 2019-06-10 Weight 139 lbs 2019-06-10 BMI 21.77 kg/m2 2019-06-10 Blood pressure systolic 118 mm Hg 2019-06-10 Blood pressure diastolic 78 mm Hg 2019-06-10 MEDICATIONS Medication Instructions Dosage Frequency Start End Date Duration Status Date lisinopril 2.5 orally once a 1 tab(s) 24h Active mg day Albuterol As directed prn As directed Active inhaler Macrobid orally 2 times a 1 cap(s) 12h 13 May, 7 days Active macrocrystals- day 2019 monohydrate 100 mg Calcium 600+D orally once 1 tab(s) 24h Active 600 mg-200 daily units Lotemax 0.5% in each affected 1 gtt 6h Active eye 4 times a day PROCEDURES Procedure Date Ordered Result Body Site DOC MEDS VERIFIED W/PT OR RE Jun 10, 2019 PRES/ABSN URINE INCON ASSESS Jun 10, 2019 RESULTS No Results REASON FOR VISIT Possible UTI. Insurance Providers [facility] Member Patient Patient Patient Patient Patient Subscriber Subscriber Subscriber Group Insurance Plan Plan Plan Plan ID Relationship Address Phone Name Date of ID Name Date of No Type Insurance Insurance Insurance Coverage to Subscriber Address Phone Name Dates [employer]etna [address] [place] [id number] [facility] [place] [address] Medicare [address] Medicare self [place] [id number] [facility] [address] [employer] [address] [employer] self [place] [id number] [place] [phone] MEDICAL (GENERAL) HISTORY Type Description Date Medical [...]
--- OUTSIDE RECORDS SUMMARY | 2019-06-16 08:36 | XMS REPORT ---
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 Problem Unspecified ovarian N83.209 Active 00047443 cyst, unspecified side Problem PELVIC PAIN 625.9 Active 63769548 Problem Postmenopausal N95.0 Active 21190394 bleeding Problem Polyp of corpus N84.0 Active 78946458 uteri ALLERGIES Substance Reaction Event Type Date Status Sulfa rash Drug Allergy August, Active Penicillin rash Drug Allergy August, Active ENCOUNTERS Encounter Location Date Diagnosis [address] Jul, [facility] [address] [place] [id number] Jan, [facility] [address] [place], [place] [id number] [address] Jan, Other specified follicular [facility] [address] [place] [address], disorders L73.8 and Scar [place] [id number] conditions and fibrosis of skin L90.5 [facility] 103 Dec, Urinary tract infection, OBGYN [facility], site not specified N39.0 [place] [id number] [facility] 103 Dec, Urinary tract infection, OBGYN [facility], site not specified N39.0 [place] [id number] [facility] 103 Dec, OBGYN [place] [id number] [place] [facility] [address] [facility] Dec, D[address]uria R30.[address] [facility] [address] [place], [place] [id number] [facility] 103 Sep, Other [facility] N83.292 and Other [place] [id number] ovarian cyst, right side N83.291 [facility] 103 Sep, [place] [id number] [place] [address] Sep, Other specified conditions [place], [place] [id number] associated with female genital organs and menstrual cycle N94.89 ; Other ovarian cyst, right side N83.291 and Other ovarian cyst, left side N83.292 [facility] 103 Sep, OBGYN [place] [id number] [place] [facility] [address] August, Other ovarian cyst, left OBGY Road [address] [place], side N83.292 and Other [place] [id number] ovarian cyst, right side N83.291 [facility] 103 August, OBGYN [place] [id number] [facility] 103 Jul, OBGYN [place] [id number] [place] [facility] [address] Jul, Other ovarian cyst, left [facility] [place], side N83.292 and Other [place] [id number] ovarian cyst, right side N83.291 [facility] 103 Jul, Encounter for [facility], gynecological examination [place] [id number] (general) (routine) with abnormal findings Z01.411 ; Encounter for screening for malignant neoplasm of cervix Z12.4 ; Encounter for screening mammogram for malignant neoplasm of breast Z12.31 ; Encounter for screening for malignant neoplasm of colon Z12.11 ; Postmenopausal bleeding N95.0 ; Other ovarian cyst, left side N83.292 and Other ovarian cyst, right side N83.291 [facility] 15 Jul, 2018 Unspecified ovarian cyst, OBGYN [facility], unspecified side N83.209 [place] [id number] and Pelvic and perineal pain R10.2 [facility] Dec, [facility] N95.0 and Other ovarian [place] [id number] cyst, left side N83.292 [facility] 103 Dec, Postmenopausal bleeding OBGYN [facility], N95.0 ; Other ovarian [place] [id number] cyst, left side N83.292 and Leiomyoma of uterus, unspecified D25.[address] August, Postmenopausal bleeding [facility] [address] [place], N95.0 and Polyp of corpus [place] [id number] uteri N84.[address] [facility] [address] Jul, Other specified conditions [place], [place] [id number] associated with female genital organs and menstrual cycle N94.89 and Polyp of corpus uteri N84.[address] Jul, Postmenopausal bleeding [facility] [address] [place], N95.0 [place] [id number] [facility] Jun, Unspecified ovarian cyst, OBGYN [facility], left side N83.202 and [place] [id number] Other ovarian cyst, left side N83.292 [facility] Jun, [facility]BG[facility] [place] [id number] [facility] 103 Jun, Encounter for [facility], gynecological examination [place] [id number] (general) (routine) with abnormal findings Z01.411 ; Encounter for screening for malignant neoplasm of cervix Z12.4 ; Encounter for screening for malignant neoplasm of colon Z12.11 ; PELVIC PAIN 625.9 ; Unspecified ovarian cyst, unspecified side N83.209 ; Encounter for screening mammogram for malignant neoplasm of breast Z12.31 and Postmenopausal bleeding N95.0 [facility] 103 Jun, Unspecified ovarian cyst, OBGYN [facility], unspecified side N83.209 [place] [id number] and Leiomyoma of uterus, unspecified D25.9 [facility] 103 Feb, [place] [id number] [place] [facility] [address] [place] [address] Feb, PELVIC PAIN 625.[address] [place], Unspecified ovarian cyst, [place] [id number] unspecified side N83.209 [facility] 103 Feb, OBGYN [place] [id number] [facility] 103 Jan, OBGYN [place] [id number] [facility] 103 Jan, PELVIC PAIN 625.9 and OBGYN [facility], Unspecified ovarian cyst, [place] [id number] unspecified side N83.209 [facility] 103 Jan, Unspecified ovarian cyst, OBGYN [facility], unspecified side N83.209 ; [place] [id number] Other specified conditions associated with female genital organs and menstrual cycle N94.89 and Leiomyoma of uterus, unspecified D25.9 [facility] 103 Jan, [place] [id number] [place] [facility] [address] [place] [address] Jan, PELVIC PAIN 625.[address] [place], Unspecified ovarian cyst, [place] [id number] unspecified side N83.209 [facility] 103 Dec, OBGYN [place] [id number] [place] [facility] [address] Dec, Other specified conditions [facility] [address] [place] [address], associated with female [place] [id number] genital organs and menstrual cycle N94.89 ; Unspecified ovarian cyst, unspecified side N83.209 ; PELVIC PAIN 625.9 and Postmenopausal bleeding N95.0 [facility] 103 Dec, Ovarian cyst NOS 620.2 and OBGYN [facility], Leiomyoma of uterus, [place] [id number] unspecified D25.9 [facility] 103 Nov, OBGYN [place] [id number] [facility] 103 Nov, [place]BGYN [place], [place] [id number] [facility] 103 Nov, Other specified conditions OBG[facility], associated with female [place] [id number] genital organs and menstrual cycle N94.89 ; Unspecified ovarian cyst, unspecified side N83.209 and PELVIC PAIN 625.9 [facility] 103 Nov, Other specified conditions OBG[facility], associated with female [place] [id number] genital organs and menstrual cycle N94.89 ; Ovarian cyst NOS 620.2 and PELVIC PAIN 625.9 [facility] 103 Nov, [place] [id number] [place] [facility] [address] Nov, Other specified conditions [facility] [address] [place] [address], associated with female [place] [id number] genital organs and menstrual cycle N94.89 [facility] 103 Sep, OBGYN [place] [id number] [facility] 103 Sep, Unspecified ovarian cyst, OBGYN [facility], unspecified side N83.209 [place] [id number] and PELVIC PAIN 625.9 [facility] 103 Sep, PELVIC PAIN 625.9 and OBGYN [facility], Ovarian cyst NOS 620.2 [place] [id number] [facility] 103 Sep, Ovarian cyst NOS 620.2 [place]YN [place] [id number] [facility] [address] [place] [address] August, Unspecified ovarian cyst, OBGYN Road [address] [place] [address], unspecified side N83.209 [place] [id number] and Other specified conditions associated with female genital organs and menstrual cycle N94.89 [place] [facility] [address] [place] [address] August, OBGYN Road [address] [place] [id number] [place] [facility] [address] [place] [address] Jul, Cystocele NOS w/o mention OBGYN [address] [place] [address], of uterine prolapse 618.01 [place] [id number] [facility] [address] Jul, Cystocele NOS w/o mention OBGYN [address] [place] [address], of uterine prolapse 618.01 [place] [id number] [facility] 103 Jun, FEM STRESS INCONTINENCE OBGYN [facility], 625.6 ; 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 and Cystocele NOS w/o mention of uterine prolapse 618.01 [place] [address] Jun, [place], [place] [id number] [address] Jun, FEM STRESS INCONTINENCE OBGYN Road [address] [place] [address], 625.6 ; 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 and Cystocele NOS w/o mention of uterine prolapse 618.01 [facility] 103 May, OBGYN [place], [place] [id number] [facility] 103 May, OBGYN [place] [id number] [facility] May, FEM STRESS INCONTINENCE OBGYN [address] [place] [address], 625.6 ; 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 Reason: VITAL SIGNS Height 67 in 2017-08-28 Weight 144 lbs 2017-08-28 BMI 22.55 kg/m2 2017-08-28 Blood pressure systolic 104 mm Hg 2017-08-28 Blood pressure diastolic 70 mm Hg 2017-08-28 MEDICATIONS Medication Instructions Dosage Frequency Start End Duration Status Date Date folic acid 1 mg orally once a 1 tab(s) 24h Active day Lotemax 0.5% in each affected 1 gtt 6h Active eye 4 times a day Albuterol As directed prn As directed Active inhaler lisinopril 2.5 orally once a 1 tab(s) 24h Active mg day doxycycline 20 orally every 12 1 tab(s) 12h Active mg hours Calcium 600+D orally once 1 tab(s) 24h Active 600 mg-200 daily units Vitamin D 400 1 24h Active iu bacitracin applied 1 wilfrid 8h Active topical 500 topically 3 units/g times a day Lumigan 0.01% in each affected 1 gtt Active eye once a day (in the evening) PROCEDURES Procedure Date Ordered Result Body Site DOC MEDS VERIFIED W/PT OR RE August 28, 2017 PRES/ABSN URINE INCON ASSESS August 28, 2017 RESULTS No Results REASON FOR VISIT post op Insurance Providers [facility] Member Patient Patient Patient Patient Patient Subscriber Subscriber Subscriber Group Insurance Plan Plan Plan Plan ID Relationship Address Phone Name Date of ID Name Date of No Type Insurance Insurance Insurance Coverage to Subscriber Address Phone Name Dates Medicare [phone] Medicare self [place] [id number] [facility] [address] Aetna [address] [employer] self [place] [id number] [place] [address] MEDICAL (GENERAL) HISTORY Type Description Date Medical [...]
--- OUTSIDE RECORDS SUMMARY | 2019-06-16 08:36 | XMS REPORT ---
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 721800045 follicular disorders Problem Unspecified ovarian N83.209 Active 86757864 cyst, unspecified side Problem PELVIC PAIN 625.9 Active 88542962 Problem Postmenopausal N95.0 Active 41095506 bleeding Problem Polyp of corpus N84.0 Active 07735187 uteri ALLERGIES No Information ENCOUNTERS Encounter Location Date Diagnosis [address] Jul, [facility] [address] [place] [id number] Jan, [facility] [address] [place] [id number] Jan, Other specified follicular [facility] [address] [place] [address], disorders L73.8 and [place] [id number] conditions and fibrosis of skin L90.5 [facility] Dec, Urinary tract infection, [facility], site not specified N39.0 [place] [id number] [facility] Dec, Urinary tract infection, [facility], site not specified N39.0 [place] [id number] [facility] 14 Dec, [place] [id number] [place] [facility] [address] [place] [address] Dec, Dysuria R30.0 [facility] [address] [place], [place] [id number] [place] [facility] Sep, Other [facility] side N83.292 and Other [place] [id number] ovarian cyst, right side N83.291 [facility] Sep, [place] [id number] [place] [address] Sep, Other specified conditions [place], [place] [id number] associated with female genital organs and menstrual cycle N94.89 ; Other ovarian cyst, right side N83.291 and Other ovarian cyst, left side N83.292 [facility] Sep, [place] [id number] [place] [facility] [address] [place] [address] August, Other ovarian cyst, left OBGYN Road [address] [place], side N83.292 and Other [place] [id number] ovarian cyst, right side N83.291 [facility] August, [place] [id number] [facility] Jul, [place] [id number] [place] [facility] [address] [place] [address] Jul, Other ovarian cyst, left [facility]BGYN Road [address] [place], side N83.292 and Other [place] [id number] ovarian cyst, right side N83.[address] [facility] Jul, Encounter for [facility] gynecological examination [place] [id number] (general) (routine) with abnormal findings Z01.411 ; Encounter for screening for malignant neoplasm of cervix Z12.4 ; Encounter for screening mammogram for malignant neoplasm of breast Z12.31 ; Encounter for screening for malignant neoplasm of colon Z12.11 ; Postmenopausal bleeding N95.0 ; Other ovarian cyst, left side N83.292 and Other ovarian cyst, right side N83.291 [facility] Jul, Unspecified ovarian cyst, OBG[facility], unspecified side N83.209 [place] [id number] and Pelvic and perineal pain R10.2 [facility] Dec, [facility], N95.0 and Other ovarian [place] [id number] cyst, left side N83.292 [facility] Dec, [facility], N95.0 ; Other ovarian [place] [id number] cyst, left side N83.292 and Leiomyoma of uterus, unspecified D25.[address] August, Postmenopausal bleeding [facility] [address] [place], N95.0 and Polyp of corpus [place] [id number] uteri N84.0 [place] [address] Jul, Other specified conditions [place], [place] [id number] associated with female genital organs and menstrual cycle N94.89 and Polyp of corpus uteri N84.[address] Jul, Postmenopausal bleeding [facility] [address] [place], N95.0 [place] [id number] [facility] Jun, Unspecified ovarian cyst, [facility], left side N83.202 and [place] [id number] Other ovarian cyst, left side N83.292 [facility] Jun, [facility] [place] [id number] [facility] Jun, Encounter for [facility] gynecological examination [place] [id number] (general) (routine) with abnormal findings Z01.411 ; Encounter for screening for malignant neoplasm of cervix Z12.4 ; Encounter for screening for malignant neoplasm of colon Z12.11 ; PELVIC PAIN 625.9 ; Unspecified ovarian cyst, unspecified side N83.209 ; Encounter for screening mammogram for malignant neoplasm of breast Z12.31 and Postmenopausal bleeding N95.0 [place] [facility] Jun, Unspecified ovarian cyst, [facility], unspecified side N83.209 [place] [id number] and Leiomyoma of uterus, unspecified D25.9 [place] [facility] Feb, OBG[place] [id number] [place] [facility] [address] Feb, PELVIC PAIN 625.[address] [place], Unspecified ovarian cyst, [place] [id number] unspecified side N83.209 [place] [facility] Feb, [place] [id number] [place] [facility] Jan, [place] [id number] [place] [facility] Jan, PELVIC PAIN 625.9 and [facility]BG[facility], Unspecified ovarian cyst, [place] [id number] unspecified side N83.209 [place] [facility] Jan, Unspecified ovarian cyst, [facility], unspecified side N83.209 ; [place] [id number] Other specified conditions associated with female genital organs and menstrual cycle N94.89 and Leiomyoma of uterus, unspecified D25.9 [place] [facility] Jan, OBG[place] [id number] [place] [facility] [address] Jan, PELVIC PAIN 625.[address] [place], Unspecified ovarian cyst, [place] [id number] unspecified side N83.209 [facility] Dec, OBG[place] [id number] [place] [facility] [address] Dec, Other specified conditions [facility] [address] [place], associated with female [place] [id number] genital organs and menstrual cycle N94.89 ; Unspecified ovarian cyst, unspecified side N83.209 ; PELVIC PAIN 625.9 and Postmenopausal bleeding N95.0 [place] [facility] Dec, Ovarian cyst NOS 620.2 and [facility]BG[facility], Leiomyoma of uterus, [place] [id number] unspecified D25.9 [place] [facility] Nov, O[place] [id number] [place] [facility] Nov, OBG[place] [id number] [place] [facility] Nov, Other specified conditions [facility], associated with female [place] [id number] genital organs and menstrual cycle N94.89 ; Unspecified ovarian cyst, unspecified side N83.209 and PELVIC PAIN 625.9 [place] [facility] Nov, Other specified conditions [facility], associated with female [place] [id number] genital organs and menstrual cycle N94.89 ; Ovarian cyst NOS 620.2 and PELVIC PAIN 625.9 [place] [facility] Nov, OBG[place] [id number] [place] [facility] [address] [place] [address] Nov, Other specified conditions [facility] [address] [place], associated with female [place] [id number] genital organs and menstrual cycle N94.89 [place] [facility] Sep, OBG[place] [id number] [place] [facility] Sep, Unspecified ovarian cyst, [facility], unspecified side N83.209 [place] [id number] and PELVIC PAIN 625.9 [place] [facility] Sep, PELVIC PAIN 625.9 and [facility]BG[facility], Ovarian cyst NOS 620.2 [place] [id number] [place] [facility] Sep, Ovarian cyst NOS 620.2 [place] [id number] [place] [facility] [address] [place] [address] August, Unspecified ovarian cyst, OBGYN Road [address] [place] [address], unspecified side N83.209 [place] [id number] and Other specified conditions associated with female genital organs and menstrual cycle N94.89 [place] [facility] [address] [place] [address] August, OBGY [address] [place] [id number] [place] [facility] [address] [place] [address] Jul, Cystocele NOS w/o mention OBGYN Road [address] [place] [address], of uterine prolapse 618.01 [place] [id number] [place] [address] Jul, Cystocele NOS w/o mention OBG[address], of uterine prolapse 618.01 [place] [id number] [facility] Jun, FEM STRESS INCONTINENCE [facility], 625.6 ; Urethral [place] [id number] 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.81 and Cystocele NOS w/o mention of uterine prolapse 618.01 [facility] [address] Jun, Medical [place] [id number] [address] Jun, FEM STRESS INCONTINENCE OBGYN [address] [place] [address], 625.6 ; Urethral [place] [id number] 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.81 and Cystocele NOS w/o mention of uterine prolapse 618.01 [facility] May, O[place], [place] [id number] [place] [facility] May, OBG[place] [id number] [place] [facility] May, FEM STRESS INCONTINENCE [facility] [place] [address], 625.6 ; Urethral [place] [id number] 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.81 and Cystocele NOS w/o mention of uterine prolapse 618.01 [facility] May, OBG[place], [place] [id number] [facility] 103 Apr, FEM STRESS INCONTINENCE O[facility], 625.6 [place] [id number] [facility] [address] 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 and Cystocele NOS w/o mention of uterine prolapse 618.01 IMMUNIZATIONS No Known Immunizations SOCIAL HISTORY Never Assessed REASON FOR REFERRAL FUNCTIONAL STATUS PLAN OF CARE VITAL SIGNS MEDICATIONS Medication Instructions Dosage Frequency Start End Duration Status Date Date Lotemax 0.5% in each 1 gtt 6h Active affected eye 4 times a day Albuterol inhaler As directed prn As directed Active lisinopril 2.5 mg orally once a 1 tab(s) 24h Active day Calcium 600+D 600 orally once 1 tab(s) 24h Active mg-200 units daily nitrofurantoin orally 2 times 1 cap(s) 12h 12 Sep, 7 days Active macrocrystals-mono a day 2019 hydrate 100 mg PROCEDURES No Known procedures RESULTS No Results REASON FOR VISIT UTI YRIS - [place] Insurance Providers [facility] Health Member Patient Patient Patient Patient Patient Subscriber Subscriber Subscriber Group Insurance Plan Plan Plan Plan ID Relationship Address Phone Name Date of ID Name Date of No Type Insurance Insurance Insurance Coverage to Subscriber Address Phone Name Dates [place] [address] [place] [id number] [facility] [place] [address] Medicare [phone] Medicare self [place] [id number] [facility] [id number] MEDICAL (GENERAL) HISTORY Type Description Date Medical [...]
[2019-06-16] MEDS ORDERED: Acetaminophen TAB* 325 MG PO ONE (08:41)
[2019-06-16] MEDS ORDERED: NS 0.9% 1000 ML** 1,000 ML IV ONE ×2 (08:41→10:19)
[2019-06-16] MEDS ORDERED: Albuterol/Ipratropium NEB.SOL* Albuterol 2.5 MG/Ipratropium 0.5 MG 3 ML INH ONE (08:41)
--- NOTE | 2019-06-16 08:42 | ED ---
Palpitations / Dysrhythmia - HPI Summary HPI Summary: This pt is a 73 Y/O F presenting to [facility] with a CC of tachycardia that began at 0400 this date and has persisted since. She states that she originally thought she was over heated but states that she tried to cool down without effects. She also reports a headache that is located frontally and is described as a typical headache. She states that she has mild SOB which feels like her asthma, with gastric reflux. She denies any fevers, chills, N/V, and CP. She states that was recently placed on macrobid for a UTI. She states that she has she was able to fall asleep since the onset for a couple more hours. She has a PMHx of HTN and GERD. She has no aggravating or alleviating factors. - History of Current Complaint Chief Complaint: EDDysrhythmPalp Time Seen by Provider: 06/16/19 08:32 Hx Obtained From: Patient Onset/Duration: Sudden Onset, Lasting Hours - 4, Still Present Timing: Constant Severity Initially: Mild Severity Currently: Mild Character: Fast Aggravating: Nothing Alleviating: Nothing Associated Signs & Symptoms: Negative - fevers, chills, N/V, and CP, Shortness of Breath - Allergy/Home Medications Allergies/Adverse Reactions: Allergies Allergy/AdvReac Type Severity Reaction Status Date / Time Penicillins Allergy Severe Rash Verified 06/16/19 08:30 Sulfa (Sulfonamide Allergy Mild Rash Verified 06/16/19 08:30 Antibiotics) sulfamethoxazole Allergy Mild Rash Verified 06/16/19 08:30 [From Bactrim] trimethoprim [From Bactrim] Allergy Mild Rash Verified 06/16/19 08:30 Home Medications: Home Medications Lisinopril TAB* [Prinivil TAB 5 MG*] 5 mg PO DAILY 02/12/16 [History Confirmed 06/16/19] Loteprednol Etabonate [Lotemax] 0.5 % BOTH EYES DAILY 03/27/18 [History Confirmed 06/16/19] Nitrofurantoin Monohyd/M-Cryst [Macrobid 100 mg Capsule] 100 mg PO BID 06/16/19 [History Confirmed 06/16/19] PMH/Surg Hx/FS Hx/Imm Hx Previously Healthy: Yes Endocrine/Hematology History: Denies: Hx Bone Marrow Disease, Hx Diabetes, Hx Sickle Cell Disease, Hx Anemia Cardiovascular History: Reports: Hx Hypertension - CONTROLLED W/ MEDS, 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 Denies: Hx Pacemaker/ICD Respiratory History: Reports: Hx Asthma Denies: Other Respiratory Problems/Disorders - CAN CLIMB MORE THAN 2 FLIGHTS BUT GI History: Reports: Hx Gastroesophageal Reflux Disease, Hx Hiatal Hernia - SMALL- SINCE 2008, Hx Irritable Bowel - DX CELIAC DISEASE 2008 History: Denies: Hx Renal Disease Musculoskeletal History: Reports: Hx Osteoporosis Denies: Hx Rheumatoid Arthritis, Other Musculoskeletal History - PAIN, NUMBNESS, TINGLING DOWN LEFT LEG Sensory History: Reports: Hx Cataracts, Hx Contacts or Glasses - GLASSES- SELDOM WEARS, Hx Glaucoma Denies: Hx Hearing Aid Opthamlomology History: Reports: Hx Cataracts, Hx Contacts or Glasses - GLASSES - SELDOM WEARS, Hx Glaucoma Neurological History: Reports: Hx Headaches - occasional, Hx Migraine - ocular- occasional, Other Neuro Impairments/Disorders - lumbar disc displacement, occasional bouts of vertigo Psychiatric History: Denies: Hx Panic Disorder - Cancer History Hx Chemotherapy: No Hx Radiation Therapy: No - Surgical History Surgical History: Yes Surgery Procedure, Year, and Place: TONSIL[place]OMY [place]. LEFT BREAST BIOPSY X 2 [facility] ([place]). LEFT THYROIDECTOMY BENIGN 1995 [facility]. CATARACTS/ CORNEAL CELL TRANSPLANTS BILAT- RIGHT 08/07, LEFT 05/14 [place]. PELVIC MESH - URINARY INCONTINENCE 2012 [place]. D&C 2016 [facility] Anesthesia Reactions: No - Immunization History Immunizations Up to Date: Yes Infectious Disease History: No Infectious Disease History: Denies: Traveled Outside the [place] in Last 30 Days - Family History Known Family History: Positive: Hypertension - father, Diabetes - mother Family History: Mother and father with CA - Social History Occupation: Retired Lives: With Family Alcohol Use: Occasionally Alcohol Amount: 4 DRINKS/MONTH Hx Substance Use: No Substance Use Type: Reports: None Hx Tobacco Use: No Smoking Status (MU): Never Smoked Tobacco Have You Smoked in the Last Year: No Review of Systems Negative: Fever, Chills Positive: Palpitations - tachycardic . Negative: Chest Pain Positive: Shortness Of Breath Negative: Vomiting, Nausea Positive: Headache All Other Systems Reviewed And Are Negative: Yes Physical Exam - Summary Physical Exam Summary: Constitutional: Well-developed, Well-nourished, Alert. (-) Distressed Skin: Warm, Dry HENT: Normocephalic; Atraumatic Eyes: Conjunctiva normal Neck: Musculoskeletal ROM normal neck. (-) JVD, (-) Stridor, (-) Nuchal rigidity Cardio: Rhythm regular, tachycardic rate, Heart sounds normal; Intact distal pulses; Radial pulses are 2+ and symmetric. (-) Murmur Pulmonary/Chest wall: Effort normal. (-) Respiratory distress, (-) Wheezes, (-) Rales Abd: Soft, (-) tenderness, (-) Distension, (-) Guarding, (-) Rebound Musculoskeletal: (-) Edema Lymph: (-) Cervical adenopathy Neuro: Alert, Oriented x3 Psych: affect normal, mildly anxious Triage Information Reviewed: Yes Vital Signs On Initial Exam: Initial Vitals Temp Pulse Resp BP Pulse Ox 98.8 F 115 20 151/112 94 06/16/19 08:25 06/16/19 08:25 06/16/19 08:25 06/16/19 08:25 06/16/19 08:25 Vital Signs Reviewed: Yes Procedures - Sedation Patient Received Moderate/Deep Sedation with Procedure: No Diagnostics - Vital Signs Vital Signs Temp Pulse Resp BP Pulse Ox 06/16/19 08:25 98.8 F 115 20 151/112 94 - Laboratory Result Diagrams: 06/16/19 08:39 06/16/19 08:39 Lab Statement: Any lab studies that have been ordered have been reviewed, and results considered in the medical decision making process. - Radiology CXR Radiology Interpretation Completed By: Radiologist Summary of Radiographic Findings: No acute cardiopulmonary process by radiograph. ED physician has reviewed this report. - EKG 0837 Cardiac Rate: Tachycardia - 110 BPM EKG Rhythm: Sinus Tachycardia Summary of EKG Findings: An EKG at 0837 reveals normal sinus tachycardia at 110 BPM, significant artifact limiting interpretation. Will be repeated. Interpreted by Dr. Philipp Reyes at 0838 06/16/2019. 1012 Cardiac Rate: Tachycardia - 107 BPM EKG Rhythm: Sinus Tachycardia ST Segment: Normal Ectopy: None EKG Comparison: No Significant Change - 10/08/18 Summary of EKG Findings: An EKG at 1012 reveals sinus tachycardia at 107 BPM, no significant change from 10/08/18: nml axis, nml intervals. No STEMI. Interpreted by Dr. Abel Reyes at 06/16/2019 1034. Re-Evaluation - Re-Evaluation First Eval Re-Evaluation Time: 10:05 Change: Improved - d/w patient results. Plan for repeat EKG. HR dec Course/Dx - Course Course Of Treatment: 73 y/o F w recent UTI p/w tachycardia. - Exam well appearing, afebrile. EKG sinus tachycardia. Labs notable for a negative d-dimer , normal troponin. Do not suspect cardiac causes or PE. Patient denies chest pain. Patient was given 2 L of fluid, heart rate decreased to the 90s. Patient does have leukocytosis of 11, with known UTI for which she is taking antibiotics. Do not suspect systemic infection - Diagnoses Provider Diagnoses: Tachycardia, Headache Discharge ED - Sign-Out/Discharge Documenting (check all that apply): Patient Departure - discharge - Discharge Plan Condition: Stable Disposition: HOME Patient Education Materials: Tachycardia (ED) Referrals: Raymond Washington MD [Primary Care Provider] - Additional Instructions: You were seen in the emergency department for fast heart rate. Your labs that show any evidence of infection, your heart tracing was normal. Your chest x- ray did not show any evidence of pneumonia. Please follow up with your primary care doctor in next 2-3 days and return to emergency department for chest pain, trouble breathing, worsening or concerning symptoms. It was a pleasure taking care of you today. - Billing Disposition and Condition Condition: STABLE Disposition: Home - Attestation Statements Document Initiated by Senaite: Yes Documenting Scribe: Jose Alcazar Provider For Whom Janessa is Documenting (Include Credential): Abel Reyes MD Scribe Attestation: I, Jose Alcazar, scribed for Abel Reyes MD on 06/18/19 at 1613. Scribe Documentation Reviewed: Yes Provider Attestation: The documentation as recorded by the Jose toribio accurately reflects the service I personally performed and the decisions made by me, Abel Reyes MD Status of Scribe Document: Viewed
[2019-06-16 08:52] LABS: ABS Eosinophils 0.4 10^3/ul (0-0.6); ABS Monocytes 0.7 10^3/ul (0-0.8); ABS Neutrophils 8.9 10^3/ul (1.5-7.7); Eosinophil % 3.7 %; Hematocrit 45 % (35-47); Hemoglobin 15.3 g/dL (12.0-16.0); Mean Corpuscular HGB Conc 34 g/dL (31-36); Mean Corpuscular Hemoglobin 31 pg (27-31); Mean Corpuscular Volume 92 fL (80-97); Mean Platelet Volume 7.8 fL (7.4-10.4); Platelet Count 225 10^3/uL (150-450); Red Blood Count 4.88 10^6 /uL (3.70-4.87); Red Cell Distribution Width 13 % (10-15); White Blood Count 11.1 10^3/uL (3.5-10.8)
[2019-06-16 09:08] LABS: Albumin 4.3 g/dL (3.2-5.2); Albumin/Globulin Ratio 1.8 (1-3); BUN/Creatinine Ratio 26.7 (8-20); Calcium 9.2 mg/dL (8.6-10.3); EGFR African American 78.3 (>60); EGFR Non-African American 64.7 (>60); Globulin 2.4 g/dL (2-4); Potassium 4.8 mmol/L (3.5-5.0); Total Bilirubin 0.9 mg/dL (0.2-1.0); Total Protein 6.7 g/dL (6.4-8.9)
[2019-06-16 09:37] LABS: TSH (Thyroid Stimulating Horm) 1.63 mcIU/mL (0.34-5.60)
[2019-06-16 09:40] LABS: Free T4 0.88 ng/dL (0.61-1.12)
[2019-06-16 12:03] VITALS: BP 117/60
== END 2019-06-16 12:02 | disposition home or self-care (01) ==
LOC: ED 08:19
DX: R00.0 Tachycardia, unspecified (principal); R51 Headache; I10 Essential (primary) hypertension; K21.9 Gastro-esophageal reflux disease without esophagitis; Z79.899 Other long term (current) drug therapy; Z88.0 Allergy status to penicillin; Z88.1 Allergy status to other antibiotic agents; Z88.2 Allergy status to sulfonamides
CPT/HCPCS: 36415; 71046; 80053; 84439; 84443; 84484; 85025; 85379; 93005; 96360; 96361; 99284; A9270-GY